=== PATIENT | male | born 1985 | race African-American/Black ===

== ENCOUNTER 2021-02-17 17:14 | Emergency (ER) | payer SELFPAY ==
[~2021-02-17] VITALS: Ht 182.9 cm; Wt 84.0 kg
[2021-02-17 17:17] VITALS: BP 90/60
== END 2021-02-17 20:53 | disposition left against medical advice (07) ==
LOC: ER 17:14
DX: R10.9 Unspecified abdominal pain (principal); Z53.21 Procedure and treatment not carried out due to patient leaving prior to being seen by health care provider